=== PATIENT | female | born 1990 | race Caucasian/White ===

== ENCOUNTER 2016-04-18 21:12 | Emergency (ER) | payer MEDICAID ==
[~2016-04-18] VITALS: Ht 162.6 cm; Wt 95.9 kg
[~2016-04-18 21:12] MED LIST: MULTI VITAMINS1 TAB PO; NORCO 325 MG-51 TAB PO
[2016-04-18 21:15] VITALS: TEMP 97.9
[2016-04-18] MEDS ORDERED: SYNTHROID 0.10.15 MG PO (21:19)
[2016-04-18] MEDS ORDERED: PRENATAL (21:19)
[2016-04-18 22:18] VITALS: BP 142/74; PULSE 96
== END 2016-04-18 22:25 | disposition home or self-care (01) ==
LOC: COL.ER 21:12
DX: O20.0 Threatened abortion (principal); Z3A.10 10 weeks gestation of pregnancy

== ENCOUNTER 2016-08-24 09:29 | Outpatient (CLI) | payer MEDICAID ==
[~2016-08-24] VITALS: Ht 165.1 cm; Wt 103.6 kg
[2016-08-24 09:25] VITALS: TEMP 98
[2016-08-24 09:29] VITALS: BP 123/78; PULSE 95; TEMP 98.1
[~2016-08-24 09:29] MED LIST changes: +PRENATAL; +SYNTHROID 0.10.15 MG PO
== END 2016-08-24 11:00 | disposition home or self-care (01) ==
LOC: LDRO 09:29
DX: O9A.213 Injury, poisoning and certain other consequences of external causes complicating pregnancy, third trimester (principal); O99.89 Other specified diseases and conditions complicating pregnancy, childbirth and the puerperium; R10.9 Unspecified abdominal pain; W17.89XA Other fall from one level to another, initial encounter; Y92.012 Bathroom of single-family (private) house as the place of occurrence of the external cause; Z3A.28 28 weeks gestation of pregnancy

== ENCOUNTER 2016-09-19 21:20 | Emergency (ER) | payer MEDICAID ==
[~2016-09-19] VITALS: Ht 162.6 cm; Wt 104.5 kg
[2016-09-19 21:21] VITALS: BP 136/77; PULSE 93; TEMP 98.1
== END 2016-09-19 22:37 | disposition home or self-care (01) ==
LOC: COL.ER 21:20
DX: O9A.213 Injury, poisoning and certain other consequences of external causes complicating pregnancy, third trimester (principal); S00.412A Abrasion of left ear, initial encounter; Z3A.33 33 weeks gestation of pregnancy; X58.XXXA Exposure to other specified factors, initial encounter

== ENCOUNTER 2016-10-06 02:52 | Outpatient (CLI) | payer MEDICAID ==
[~2016-10-06] VITALS: Ht 162.6 cm; Wt 104.5 kg
[2016-10-06 03:10] VITALS: BP 131/76; PULSE 66; TEMP 98.1
[2016-10-06 03:15] VITALS: BP 131/76; PULSE 66; TEMP 98.1
== END 2016-10-06 04:10 | disposition home or self-care (01) ==
LOC: LDRO 02:52
DX: O62.2 Other uterine inertia (principal); Z3A.34 34 weeks gestation of pregnancy

== ENCOUNTER 2016-10-31 23:46 | Outpatient (CLI) | payer MEDICAID ==
[~2016-10-31] VITALS: Ht 165.1 cm; Wt 103.2 kg
[2016-11-01 00:22] VITALS: BP 122/67; PULSE 67; TEMP 98.2
[2016-11-01 00:30] VITALS: BP 122/67; PULSE 67; TEMP 98.2
== END 2016-11-01 01:25 | disposition home or self-care (01) ==
LOC: LDRO 23:46
DX: O36.8130 Decreased fetal movements, third trimester, not applicable or unspecified (principal); Z3A.38 38 weeks gestation of pregnancy

== ENCOUNTER 2016-11-05 05:28 | Inpatient (IN) | payer MEDICAID ==
[~2016-11-05] VITALS: Ht 165.2 cm; Wt 103.2 kg
[2016-11-05] VITALS (19 sets, daily range): BP systolic 112–147; BP diastolic 68–102; PULSE 57–91; TEMP 97.7–98.1
[2016-11-05 07:20] LABS: BASO % 0.2 % (0.0-2.0); EOS # 0.2 (0.0-0.7); EOS % 2.5 % (0-4.0); GRAN # 5.3 (1.4-6.5); GRAN % 65.9 % (42.2-75.2); LYMPH # 1.9 (1.2-3.4); LYMPH % 23.9 % (20.0-51.0); MEAN CELL VOLUME 85 fl (80.0-100.0); MEAN CORPUSCULAR HGB CONC 33 g/dl (33.0-37.0); MEAN PLATELET VOLUME 9.1 fl (7.4-10.4); MONO # 0.6 (0.1-0.6); PLATELET COUNT 192 K/mm3 (130-400); RED BLOOD COUNT 4.15 M/mm3 (4.10-5.30); REDCELL DISTRIBUTION WIDTH-CV 14.5 % (11.5-14.5); WHITE BLOOD COUNT 8.1 K/mm3 (4.8-10.8)
[2016-11-05 07:43] LABS: HEMATOCRIT 35.3 % (37.0-47.0); HEMOGLOBIN 11.7 g/dl (12.5-16.0); MEAN CORPUSCULAR HEMOGLOBIN 28 pg (27.0-31.0)
[2016-11-05 18:18] LABS: BASO % 0.3 % (0.0-2.0); EOS # 0.1 (0.0-0.7); EOS % 1.3 % (0-4.0); GRAN # 8.2 (1.4-6.5); HEMATOCRIT 38.3 % (37.0-47.0); HEMOGLOBIN 12.6 g/dl (12.5-16.0); LYMPH # 1.2 (1.2-3.4); LYMPH % 11.6 % (20.0-51.0); MEAN CELL VOLUME 85 fl (80.0-100.0); MEAN CORPUSCULAR HEMOGLOBIN 28 pg (27.0-31.0); MEAN CORPUSCULAR HGB CONC 33 g/dl (33.0-37.0); MEAN PLATELET VOLUME 9.2 fl (7.4-10.4); MONO # 0.5 (0.1-0.6); MONO % 4.5 % (1.7-9.3); PLATELET COUNT 157 K/mm3 (130-400); RED BLOOD COUNT 4.51 M/mm3 (4.10-5.30); REDCELL DISTRIBUTION WIDTH-CV 14.5 % (11.5-14.5)
[2016-11-05 18:20] LABS: ADJUSTED CALCIUM 10.2 mg/dL (8.4-10.2); ALBUMIN 2.6 gm/dL (3.5-5.0); BILIRUBIN,TOTAL 0.7 mg/dL (0.0-1.0); CALCIUM 9.1 mg/dL (8.4-10.2); CREATININE, serum 0.81 mg/dL (0.52-1.25); POTASSIUM 4.2 mmol/L (3.4-5.0); TOTAL PROTEIN 5.4 gm/dL (6.4-8.2)
[2016-11-06 05:30] VITALS: BP 126/66; PULSE 95; TEMP 98.3
[2016-11-06 06:45] VITALS: BP 105/53; PULSE 84; TEMP 97.8
[2016-11-06 07:50] LABS: BASO % 0.1 % (0.0-2.0); EOS # 0.2 (0.0-0.7); EOS % 2.1 % (0-4.0); GRAN # 7.3 (1.4-6.5); GRAN % 82.1 % (42.2-75.2); LYMPH # 0.9 (1.2-3.4); LYMPH % 10.6 % (20.0-51.0); MEAN CELL VOLUME 85 fl (80.0-100.0); MEAN CORPUSCULAR HGB CONC 32 g/dl (33.0-37.0); MEAN PLATELET VOLUME 9.1 fl (7.4-10.4); MONO # 0.4 (0.1-0.6); MONO % 4.6 % (1.7-9.3); PLATELET COUNT 155 K/mm3 (130-400); RED BLOOD COUNT 3.88 M/mm3 (4.10-5.30); REDCELL DISTRIBUTION WIDTH-CV 14.8 % (11.5-14.5); WHITE BLOOD COUNT 8.8 K/mm3 (4.8-10.8)
[2016-11-06 07:52] LABS: HEMATOCRIT 33.1 % (37.0-47.0); HEMOGLOBIN 10.7 g/dl (12.5-16.0); MEAN CORPUSCULAR HEMOGLOBIN 28 pg (27.0-31.0)
[2016-11-06] MEDS ORDERED: IBU600 MG PO (08:43)
[2016-11-06] MEDS ORDERED: PERCOCET 325 MG1 TA2 PO (08:43)
[2016-11-06 11:00] VITALS: BP 141/86; PULSE 99; TEMP 98.1
[2016-11-06 17:18] VITALS: BP 133/85; PULSE 90; TEMP 97.8
[2016-11-06 21:00] VITALS: BP 134/81; PULSE 94; TEMP 98.1
[2016-11-07 08:48] VITALS: BP 129/76; PULSE 84; TEMP 98.6
== END 2016-11-07 11:55 | disposition home or self-care (01) | DRG 765 ==
LOC: OB 05:28
PROVIDERS: Obstetrics & Gynecology
PROC: 10D00Z1 Extraction of Products of Conception, Low, Open Approach (ICD-10-PCS; principal; 2016-11-05)
PROC: 0WQF0ZZ Repair Abdominal Wall, Open Approach (ICD-10-PCS; 2016-11-05)
DX: O34.211 Maternal care for low transverse scar from previous cesarean delivery (principal); O99.354 Diseases of the nervous system complicating childbirth; N85.8 Other specified noninflammatory disorders of uterus; G40.909 Epilepsy, unspecified, not intractable, without status epilepticus; O99.284 Endocrine, nutritional and metabolic diseases complicating childbirth; E03.9 Hypothyroidism, unspecified; O99.62 Diseases of the digestive system complicating childbirth; K43.9 Ventral hernia without obstruction or gangrene; O69.81X0 Labor and delivery complicated by cord around neck, without compression, not applicable or unspecified; Z3A.39 39 weeks gestation of pregnancy; Z37.0 Single live birth
CPT/HCPCS: J0690; J1885; J2210; J2270; J2370; J2405; J2590; J7120

== ENCOUNTER 2016-11-18 23:43 | Inpatient (IN) | payer MEDICAID ==
[~2016-11-18] VITALS: Ht 162.6 cm; Wt 95.0 kg
[~2016-11-18 23:43] MED LIST changes: +IBU600 MG PO; +PERCOCET 325 MG1 TA2 PO
[2016-11-19] VITALS (14 sets, daily range): BP systolic 95–119; BP diastolic 51–79; PULSE 90–119; TEMP 97.9–102
[2016-11-19 00:41] LABS: COLLECTION METHOD CLEAN CATCH
[2016-11-19 00:49] LABS: HEMATOCRIT 37.6 % (37.0-47.0); MEAN CELL VOLUME 86 fl (80.0-100.0); MEAN CORPUSCULAR HEMOGLOBIN 27 pg (27.0-31.0); MEAN CORPUSCULAR HGB CONC 32 g/dl (33.0-37.0); MEAN PLATELET VOLUME 8.5 fl (7.4-10.4); PLATELET COUNT 384 K/mm3 (130-400); RED BLOOD COUNT 4.39 M/mm3 (4.10-5.30); REDCELL DISTRIBUTION WIDTH-CV 14.7 % (11.5-14.5)
[2016-11-19 00:53] LABS: HEMOGLOBIN 11.9 g/dl (12.5-16.0)
[2016-11-19 01:02] LABS: ALBUMIN 3.3 gm/dL (3.5-5.0); BILIRUBIN,TOTAL 0.9 mg/dL (0.0-1.0); CALCIUM 8.8 mg/dL (8.4-10.2); CREATININE, serum 0.96 mg/dL (0.52-1.25); POTASSIUM 3.8 mmol/L (3.4-5.0); TOTAL PROTEIN 7.3 gm/dL (6.4-8.2)
[2016-11-19 01:04] LABS: MUCOUS Present /lpf; PH 5 (5-8); SQUAMOUS EPITHELIAL 20-50 /hpf; URINE APPEARANCE Cloudy; URINE BACTERIA Rare /hpf; URINE BILIRUBIN Positive (NEGATIVE); URINE BLOOD 2+ (NEGATIVE); URINE COLOR Amber; URINE GLUCOSE Negative (NEGATIVE); URINE KETONE Negative (NEGATIVE); URINE LEUKOCYTE ESTERASE 1+ (NEGATIVE); URINE NITRATE Negative (NEGATIVE); URINE PROTEIN(semi-quant) 3+ (NEGATIVE); URINE RBC >50 /hpf
[2016-11-19 01:18] LABS: BAND 7 % (0-10); EOSINOPHIL 4 % (0-4); LYMPHOCYTE 9 % (20.0-51.0); NEUTROPHILS 70 % (42.0-75.2)
[2016-11-19 01:19] LABS: ROULEAUX 1+; TOXIC GRANULATION PRESENT
[2016-11-19 01:49] LABS: C-REACTIVE PROTEIN 50.6 mg/dL (0.0-0.9)
--- NOTE | 2016-11-19 03:45 | NUR ---
0345 TO 222 FROM ER PER STRETCHER. HX C/SECT ON 11/05 AND NOW IS HAVING SWELLING AND PAIN NEAR C/SECT SITE. ODOR NOTED FROM ADB INC AND HARD SWOLLEN AREA NOTED ON PANNUS. SOME REDNESS NOTED IN AREA AROUND INC AND LOWER ABD. STATES IS NOT HAVING PAIN AT THIS TIME. IV ABX INFUSING ON ADM TO 222. INITIAL ASSESSMENT DONE.
--- NOTE | 2016-11-19 04:10 | NUR ---
0410 UP TO BR AND VOIDED. IV LR TO PRESENT SITE TO RUN AT 125/HR PER PUMP. INSTRUCTED ON NPO. BREAST PUMP GIVEN.
--- NOTE | 2016-11-19 06:30 | NUR ---
Dr. Campbell here, visits with patient.
--- NOTE | 2016-11-19 11:00 | NUR ---
Radiology here to roller picker patient in wheel chair. Iv stopped per radiology.
--- NOTE | 2016-11-19 12:32 | NUR ---
Patient tolerated procedure well, Vital signs remained stable, she was comfortable during procedure, I have called report to BALJINDER Zelaya in OB and gave report
--- NOTE | 2016-11-19 12:33 | NUR ---
Patient was brought to CT at 1105, alert/oriented, Vital signs stale, arrived and instructed to give 0.5mg Versed and 50mcg fentanyl, patient was draped in sterile fashion, Versed and Fentanyl given at 1130, local of lidocaine given per , incision was made/ abscess drained/ specimen collected, Vital signs remained stable and patient was drowsy/alert during procedure, ordered to give another dose of 0.5mg Versed/ this was given at 1145, guide wire inserted and drain place/ sutured into place by , clean dressing placed over drain insertion site, patient tolerated well/ Vital signs remained stable throughout, procedure completed at 1205, patient was alert/oriented and VSS stable at this time, report called to BALJINDER Zelaya in OB, clinical research tech tranporting patient back to her room in OB
[2016-11-20 03:50] VITALS: BP 115/65; PULSE 75; TEMP 97.2
[2016-11-20 07:06] VITALS: BP 117/68; PULSE 72; TEMP 97.8
--- NOTE | 2016-11-20 09:13 | NUR ---
0900 DR MOTA AT BEDSIDE FOR ASSESSMENT. ASSESSED INCISION SITE. DR MOTA APPLIED PRESSURE AND LARGE AMOUNT OF PURULENT DRAINAGE NOTED AT THIS TIME FROM ABD INCISION SITE. WIPED CLEAN AND ABD PAD PLACED AT THIS TIME. PATIENT TOLERATES WELL. DRAIN TUBE REMAINS INTACT WITH PURULENT DRAINAGE NOTED IN BAG.
--- NOTE | 2016-11-20 10:51 | NUR ---
1030 LAWRENCE KIM RN TO ASSUME CARE OF PATIENT AT THIS TIME
[2016-11-20 11:50] VITALS: BP 106/84; PULSE 73; TEMP 97.2
[2016-11-20 16:18] VITALS: BP 132/69; PULSE 54; TEMP 97.5
--- NOTE | 2016-11-20 19:15 | NUR ---
Awakened for supper tray. Denies needs or discomfort at this time.
[2016-11-20 20:30] VITALS: BP 130/74; PULSE 78; TEMP 98.2
--- NOTE | 2016-11-20 20:30 | NUR ---
Discussed /pumping plans with pt. Pt tearfully states "I just don't feel like pumping without my baby here, but I know when I go home I'll want to start pumping/nursing again" Reviewed importance of pumping to maintain milk supply. Encouraged pt to try looking at pictures of the baby while she's pumping. Will nap and then pump when I start next round of antibiotics.
--- NOTE | 2016-11-20 20:30 | NUR ---
2wk old C/S incision with redness and warmth noted: small 1cm area at midline open, with no active drainage at this time, abd foled and placed in pannus fold at incision line.
[2016-11-21 05:30] VITALS: BP 131/74; PULSE 69; TEMP 98
[2016-11-21 08:00] VITALS: BP 127/75; PULSE 55; TEMP 97.9
[2016-11-21 16:59] VITALS: BP 137/84; PULSE 52; TEMP 97.7
[2016-11-21 20:42] VITALS: BP 129/82; PULSE 50; TEMP 97.6
[2016-11-22 00:18] VITALS: BP 138/84; PULSE 48; TEMP 97.5
[2016-11-22 04:43] VITALS: BP 148/77; PULSE 50; TEMP 97.4
[2016-11-22 06:37] VITALS: BP 13134/7; PULSE 67; TEMP 97.1
[2016-11-22] MEDS ORDERED: BACTRIM DS 8001 TAB PO (10:42)
--- NOTE | 2016-11-22 14:28 | NUR ---
1000 ZOSYN HUNG AND INFUSING WELL, DR MOTA IN TO SEE PT AND DISCUSS PLAN OF CARE. PT PLEASED WITH DISCHARGE TODAY
--- NOTE | 2016-11-22 14:29 | NUR ---
1100 VANCOMYCIN HUNG. HOME CARE INSTRUCTIONS REVIEWED WITH PT AND SPOUSE. QUESTIONS INVITED AND ANSWERED. 1230 VANCOMYCIN INFUSED AND IV SITE DC'D WITH TIP INTACT. SLIGHT REDNESS NOTED AND CARE DISCUSSED WITH PT. VERBALIZES UNDERSTANDING. KNOWS ABOUT FOLLOW UP APPOINTMENT WITH DR MOTA NEXT WEEK AND WOUND CARE APPOINTMENT TOMORROW AT 1500. 1255 VERBALIZES NO FURTHER QUESTIONS. DISMISSED AMB TO SELF CARE WITH SPOUSE AT SIDE.
== END 2016-11-22 12:55 | disposition home or self-care (01) | DRG 776 ==
LOC: COL.ER 23:43 → OB 11-19 02:29
PROVIDERS: Emergency Medicine; ADMIT Obstetrics & Gynecology
PROC: 0W9F3ZZ Drainage of Abdominal Wall, Percutaneous Approach (ICD-10-PCS; principal; 2016-11-19)
DX: O86.0 Infection of obstetric surgical wound (principal); O99.285 Endocrine, nutritional and metabolic diseases complicating the puerperium; E03.9 Hypothyroidism, unspecified; B95.62 Methicillin resistant Staphylococcus aureus infection as the cause of diseases classified elsewhere
CPT/HCPCS: C1729; J1170; J2250; J2543; J3010; J3370; J7030; J7050; J7120; Q9967

== ENCOUNTER → 2016-11-23 | Outpatient (CLI) | payer MEDICAID ==
[~2016-11-23] MED LIST changes: +BACTRIM DS 8001 TAB PO; +CEPHALEXIN500 M1 PO; +PROBIOTIC FORMU1 CAP PO
== END ==
LOC: WCC 11:11
DX: T81.31XA Disruption of external operation (surgical) wound, not elsewhere classified, initial encounter (principal)
CPT/HCPCS: 17717; 27517; A6207; A6212; G0463

== ENCOUNTER 2016-11-26 10:07 | Day surgery (SDC) | payer MEDICAID ==
[~2016-11-26] VITALS: Ht 162.6 cm; Wt 95.0 kg
[~2016-11-26 10:07] MED LIST changes: -CEPHALEXIN500 M1 PO; -PROBIOTIC FORMU1 CAP PO
[2016-11-26] MEDS ORDERED: PROBIOTIC FORMU1 CAP PO (10:58)
[2016-11-26] MEDS ORDERED: PERCOCET 325 MG1 TA2 PO (10:59)
[2016-11-26] MEDS ORDERED: IBU600 MG PO (11:00)
[2016-11-26] MEDS ORDERED: BACTRIM DS 8001 TAB PO (11:00)
[2016-11-26 11:06] VITALS: BP 113/76; PULSE 74; TEMP 97.8
[2016-11-26 13:16] VITALS: BP 113/62; PULSE 57; TEMP 97.5
[2016-11-26 13:31] VITALS: BP 121/65; PULSE 53
[2016-11-26 13:46] VITALS: BP 118/64; PULSE 57
[2016-11-26 14:01] VITALS: BP 118/77; PULSE 49
[2016-11-26 14:31] VITALS: BP 114/62; PULSE 50
== END 2016-11-26 15:00 | disposition home or self-care (01) ==
LOC: SDCO 10:07
DX: T81.4XXA Infection following a procedure, initial encounter (principal); E03.9 Hypothyroidism, unspecified; G40.909 Epilepsy, unspecified, not intractable, without status epilepticus; M79.7 Fibromyalgia
CPT/HCPCS: J0330; J2704; J3010; J7120

== ENCOUNTER → 2016-11-28 | Outpatient (CLI) | payer MEDICAID ==
[~2016-11-28] MED LIST changes: +CEPHALEXIN500 M1 PO; +PROBIOTIC FORMU1 CAP PO
== END ==
LOC: WCC 11:39
DX: T81.31XA Disruption of external operation (surgical) wound, not elsewhere classified, initial encounter (principal)
CPT/HCPCS: 17717; A6212; G0463

== ENCOUNTER 2016-12-01 11:01 | Emergency (ER) | payer MEDICAID ==
[~2016-12-01] VITALS: Ht 162.6 cm; Wt 91.0 kg
[~2016-12-01 11:01] MED LIST changes: -CEPHALEXIN500 M1 PO
[2016-12-01 11:21] VITALS: TEMP 98.5
[2016-12-01 13:02] LABS: BASO # 0.1 (0.0-0.2); BASO % 0.7 % (0.0-2.0); EOS # 1.3 (0.0-0.7); EOS % 14.8 % (0-4.0); GRAN # 4.6 (1.4-6.5); GRAN % 53.3 % (42.2-75.2); HEMATOCRIT 42.6 % (37.0-47.0); HEMOGLOBIN 13.5 g/dl (12.5-16.0); LYMPH # 2.1 (1.2-3.4); LYMPH % 24.5 % (20.0-51.0); MEAN CELL VOLUME 85 fl (80.0-100.0); MEAN CORPUSCULAR HEMOGLOBIN 27 pg (27.0-31.0); MEAN CORPUSCULAR HGB CONC 32 g/dl (33.0-37.0); MEAN PLATELET VOLUME 8.5 fl (7.4-10.4); MONO # 0.5 (0.1-0.6); MONO % 6.2 % (1.7-9.3); PLATELET COUNT 320 K/mm3 (130-400); REDCELL DISTRIBUTION WIDTH-CV 14.8 % (11.5-14.5); WHITE BLOOD COUNT 8.7 K/mm3 (4.8-10.8)
[2016-12-01 13:07] LABS: PH 6 (5-8); SQUAMOUS EPITHELIAL 0-2 /hpf; URINE APPEARANCE Hazy; URINE BACTERIA None Seen /hpf; URINE BILIRUBIN Negative (NEGATIVE); URINE BLOOD 2+ (NEGATIVE); URINE COLOR Yellow; URINE GLUCOSE Negative (NEGATIVE); URINE KETONE Negative (NEGATIVE); URINE RBC 20-50 /hpf; URINE UROBILINOGEN Negative (NEGATIVE)
[2016-12-01 13:18] LABS: ADJUSTED CALCIUM 10.3 mg/dL (8.4-10.2); ALBUMIN 4.5 gm/dL (3.5-5.0); BILIRUBIN,TOTAL 0.8 mg/dL (0.0-1.0); C-REACTIVE PROTEIN 1.5 mg/dL (0.0-0.9); CALCIUM 10.7 mg/dL (8.4-10.2); CREATININE, serum 1.06 mg/dL (0.52-1.25); TOTAL PROTEIN 8.9 gm/dL (6.4-8.2)
[2016-12-01 13:22] LABS: INR 1.2 (0.8-3.0); PROTHROMBIN TIME 13.2 SECONDS (9.7-12.8)
[2016-12-01 13:30] LABS: ERYTHROCYTE SEDIMENTATION RATE 35 mm/hr (0-20)
[2016-12-01 13:44] LABS: POTASSIUM 5.3 mmol/L (3.4-5.0)
[2016-12-01] MEDS ORDERED: CEPHALEXIN500 M1 PO (15:12)
[2016-12-01 15:27] VITALS: BP 128/82; PULSE 78
== END 2016-12-01 15:28 | disposition home or self-care (01) ==
LOC: COL.ER 11:01
PROVIDERS: Emergency Medicine
DX: R55 Syncope and collapse (principal); Z98.890 Other specified postprocedural states
CPT/HCPCS: J7030; Q9967

== ENCOUNTER → 2016-12-03 | Outpatient (CLI) | payer MEDICAID ==
[~2016-12-03] MED LIST changes: +CEPHALEXIN500 M1 PO
== END ==
LOC: WCC 09:52
DX: T81.31XA Disruption of external operation (surgical) wound, not elsewhere classified, initial encounter (principal)

== ENCOUNTER → 2016-12-05 | Outpatient (CLI) | payer MEDICAID | LOC: WCC 12-03 09:26 | DX: T81.31XA Disruption of external operation (surgical) wound, not elsewhere classified, initial encounter (principal) | CPT/HCPCS: 27511; A6210 ==

== ENCOUNTER → 2016-12-07 | Outpatient (CLI) | payer MEDICAID | LOC: WCC 12-03 08:27 | DX: T81.31XA Disruption of external operation (surgical) wound, not elsewhere classified, initial encounter (principal) | CPT/HCPCS: 27511; A6210 ==

== ENCOUNTER → 2016-12-10 | Outpatient (CLI) | payer MEDICAID | LOC: WCC 08:15 | DX: T81.31XA Disruption of external operation (surgical) wound, not elsewhere classified, initial encounter (principal) | CPT/HCPCS: A6210 ==

== ENCOUNTER → 2016-12-12 | Outpatient (CLI) | payer MEDICAID | LOC: WCC 12-11 10:10 | DX: T81.31XA Disruption of external operation (surgical) wound, not elsewhere classified, initial encounter (principal) | CPT/HCPCS: 27511; A6210 ==

== ENCOUNTER → 2016-12-14 | Outpatient (CLI) | payer MEDICAID | LOC: WCC 12:57 | DX: T81.31XA Disruption of external operation (surgical) wound, not elsewhere classified, initial encounter (principal) | CPT/HCPCS: 27511; A6210 ==

== ENCOUNTER → 2016-12-17 | Outpatient (CLI) | payer MEDICAID | LOC: WCC 12:03 | DX: T81.31XA Disruption of external operation (surgical) wound, not elsewhere classified, initial encounter (principal) | CPT/HCPCS: 13973; A6199 ==

== ENCOUNTER → 2016-12-19 | Outpatient (CLI) | payer MEDICAID | LOC: WCC 14:31 | DX: T81.31XA Disruption of external operation (surgical) wound, not elsewhere classified, initial encounter (principal) ==

== ENCOUNTER → 2016-12-21 | Outpatient (CLI) | payer MEDICAID | LOC: WCC 13:12 | DX: T81.31XA Disruption of external operation (surgical) wound, not elsewhere classified, initial encounter (principal); Z93.6 Other artificial openings of urinary tract status ==

== ENCOUNTER → 2016-12-24 | Outpatient (CLI) | payer MEDICAID | LOC: WCC 13:08 | DX: T81.31XA Disruption of external operation (surgical) wound, not elsewhere classified, initial encounter (principal) | CPT/HCPCS: 17717; A6212; G0463 ==

== ENCOUNTER → 2016-12-26 | Outpatient (CLI) | payer MEDICAID | LOC: WCC 12-25 10:15 | DX: T81.31XA Disruption of external operation (surgical) wound, not elsewhere classified, initial encounter (principal) | CPT/HCPCS: 17717; 27514; A6212; G0463 ==

== ENCOUNTER → 2016-12-31 | Outpatient (CLI) | payer MEDICAID | LOC: WCC 13:41 | DX: T81.31XA Disruption of external operation (surgical) wound, not elsewhere classified, initial encounter (principal) | CPT/HCPCS: 27510; A6197; G0463 ==

== ENCOUNTER 2017-01-31 20:18 | Emergency (ER) | payer MEDICAID ==
[~2017-01-31] VITALS: Ht 162.6 cm; Wt 90.9 kg
[2017-01-31 20:30] VITALS: BP 147/81; TEMP 98.5
[2017-01-31 21:24] LABS: BASO % 0.4 % (0.0-2.0); EOS # 1.4 (0.0-0.7); EOS % 17.9 % (0-4.0); GRAN # 3.5 (1.4-6.5); GRAN % 44.5 % (42.2-75.2); HEMATOCRIT 40.8 % (37.0-47.0); HEMOGLOBIN 13.2 g/dl (12.5-16.0); LYMPH # 2.4 (1.2-3.4); LYMPH % 30.9 % (20.0-51.0); MEAN CELL VOLUME 85 fl (80.0-100.0); MEAN CORPUSCULAR HEMOGLOBIN 27 pg (27.0-31.0); MEAN CORPUSCULAR HGB CONC 32 g/dl (33.0-37.0); MEAN PLATELET VOLUME 8.7 fl (7.4-10.4); MONO # 0.5 (0.1-0.6); PLATELET COUNT 258 K/mm3 (130-400); RED BLOOD COUNT 4.82 M/mm3 (4.10-5.30); WHITE BLOOD COUNT 7.9 K/mm3 (4.8-10.8)
[2017-01-31 21:36] LABS: ADJUSTED CALCIUM 9.5 mg/dL (8.4-10.2); ALBUMIN 4.3 gm/dL (3.5-5.0); BILIRUBIN,TOTAL 0.3 mg/dL (0.0-1.0); C-REACTIVE PROTEIN 2.6 mg/dL (0.0-0.9); CALCIUM 9.7 mg/dL (8.4-10.2); CREATININE, serum 0.69 mg/dL (0.52-1.25); POTASSIUM 3.7 mmol/L (3.4-5.0); TOTAL PROTEIN 7.6 gm/dL (6.4-8.2)
[2017-01-31 22:14] VITALS: PULSE 79
== END 2017-01-31 22:14 | disposition home or self-care (01) ==
LOC: COL.ER 20:18
PROVIDERS: Physician Assistant
DX: R10.819 Abdominal tenderness, unspecified site (principal); E03.9 Hypothyroidism, unspecified; G40.909 Epilepsy, unspecified, not intractable, without status epilepticus; Z32.02 Encounter for pregnancy test, result negative; Z79.1 Long term (current) use of non-steroidal anti-inflammatories (NSAID); Z98.890 Other specified postprocedural states
CPT/HCPCS: J7040

== ENCOUNTER 2018-07-11 21:09 | Emergency (ER) | payer MEDICAID ==
[~2018-07-11] VITALS: Ht 162.6 cm; Wt 105.5 kg
[2018-07-11 21:09] VITALS: TEMP 99.2
[2018-07-11 21:53] LABS: COLLECTION METHOD CLEAN CATCH
--- NOTE | 2018-07-11 22:00 | NUR ---
2149-RN to ED for FHT strip. EFM and TOCO on and tracing. Patient denies contractions, LOF, spotting, or bleeding. Patient states baby has been moving normally. 2209- FHT with moderate variability. EFM and TOCO off. Patient to follow up with OB provider and keep all upcoming OB appointments.
[2018-07-11 22:04] LABS: BASO % 0.2 % (0.0-2.0); EOS # 0.4 (0.0-0.7); GRAN # 6.7 (1.4-6.5); GRAN % 67.6 % (42.2-75.2); HEMOGLOBIN 11.1 g/dl (12.5-16.0); LYMPH # 2.1 (1.2-3.4); LYMPH % 21.3 % (20.0-51.0); MEAN CELL VOLUME 86 fl (80.0-100.0); MEAN CORPUSCULAR HEMOGLOBIN 28 pg (27.0-31.0); MEAN CORPUSCULAR HGB CONC 33 g/dl (33.0-37.0); MEAN PLATELET VOLUME 8.6 fl (7.4-10.4); MONO # 0.6 (0.1-0.6); MONO % 6.2 % (1.7-9.3); PLATELET COUNT 209 K/mm3 (130-400); REDCELL DISTRIBUTION WIDTH-CV 14.6 % (11.5-14.5)
[2018-07-11 22:05] LABS: HEMATOCRIT 34.2 % (37.0-47.0)
[2018-07-11 22:13] LABS: MUCOUS Present /lpf; PH 7 (5-8); URINE APPEARANCE Hazy; URINE BACTERIA Rare /hpf; URINE BILIRUBIN Negative (NEGATIVE); URINE BLOOD Negative (NEGATIVE); URINE COLOR Yellow; URINE GLUCOSE Negative (NEGATIVE); URINE KETONE Negative (NEGATIVE); URINE LEUKOCYTE ESTERASE Negative (NEGATIVE); URINE NITRATE Negative (NEGATIVE); URINE PROTEIN(semi-quant) Negative (NEGATIVE); URINE RBC 0-2 /hpf; URINE UROBILINOGEN Negative (NEGATIVE)
[2018-07-11 22:14] LABS: ALANINE AMINOTRANSFERASE < 6 U/L (9-52); ALBUMIN 3.4 gm/dL (3.5-5.0); ALKALINE PHOSPHATASE 82 U/L (50-136); ANION GAP 9 mmol/L (7-16); AST,SGOT 13 U/L (15-37); BILIRUBIN,TOTAL 0.2 mg/dL (0.0-1.0); BLOOD UREA NITROGEN 4 mg/dL (7-17); CALCIUM 10.4 mg/dL (8.4-10.2); CARBON DIOXIDE 22 mmol/L (22-30); CHLORIDE 105 mmol/L (98-107); CREATININE, serum 0.55 (0.52-1.25); GLUCOSE 84 mg/dL (74-106); POTASSIUM 3.6 mmol/L (3.4-5.0); SODIUM 136 mmol/L (137-145); TOTAL PROTEIN 6.7 gm/dL (6.4-8.2)
[2018-07-11 23:36] VITALS: BP 121/67; PULSE 76
== END 2018-07-11 23:36 | disposition home or self-care (01) ==
LOC: COL.ER 21:09
PROVIDERS: Emergency Medicine
DX: R10.12 Left upper quadrant pain (principal); Z98.890 Other specified postprocedural states

== ENCOUNTER → 2018-07-11 | Outpatient (CLI) | payer MEDICAID | LOC: LDRO 20:55 | DX: Z34.90 Encounter for supervision of normal pregnancy, unspecified, unspecified trimester (principal); Z3A.00 Weeks of gestation of pregnancy not specified ==

== ENCOUNTER 2018-08-20 05:32 | Inpatient (IN) | payer OTHER, MEDICAID ==
[~2018-08-20] VITALS: Ht 162.6 cm; Wt 108.6 kg
[2018-08-20] VITALS (18 sets, daily range): BP systolic 106–133; BP diastolic 58–86; PULSE 65–85; TEMP 97.5–98.5
--- NOTE | 2018-08-20 05:35 | NUR ---
0535- Patient and ambulatory to 221 for scheduled section. Patient and oriented to room. Patient into restroom to void and change into gown. 0545- EFM and TOCO on and tracing. IV started. Consents signed.
[2018-08-20 06:28] LABS: BASO % 0.2 % (0.0-2.0); EOS # 0.4 (0.0-0.7); GRAN # 6.3 (1.4-6.5); GRAN % 68.2 % (42.2-75.2); HEMOGLOBIN 11.3 g/dl (12.5-16.0); LYMPH # 1.9 (1.2-3.4); LYMPH % 20.8 % (20.0-51.0); MEAN CELL VOLUME 85 fl (80.0-100.0); MEAN CORPUSCULAR HEMOGLOBIN 28 pg (27.0-31.0); MEAN CORPUSCULAR HGB CONC 33 g/dl (33.0-37.0); MEAN PLATELET VOLUME 8.6 fl (7.4-10.4); MONO # 0.6 (0.1-0.6); MONO % 6.3 % (1.7-9.3); PLATELET COUNT 208 K/mm3 (130-400); RED BLOOD COUNT 4.06 M/mm3 (4.10-5.30); REDCELL DISTRIBUTION WIDTH-CV 15.6 % (11.5-14.5)
--- NOTE | 2018-08-20 06:30 | NUR ---
Assessment complete and shave and abd prep done. 0700:This nurse at bedside holding EFM on abdomen for continuous monitoring. FHR reactive. No contractions palpated. Pt with hx of MRSA after previous c/section and hernia repair. 2 x negative swabs noted.
[2018-08-20] MEDS ORDERED: SYNTHROID0.137 MG (06:37)
[2018-08-20 07:12] LABS: HEMATOCRIT 34.3 % (37.0-47.0)
--- NOTE | 2018-08-20 09:30 | NUR ---
Pt taken to room 221 via bed. Fundus firm and bleeding WNL. Dressing has small amounts of shadowing noted, traced and will continue to monitor. Pt alert and oriented. at bedside. Denies any pain or nausea. SCD's on bilaterally. Pericare done and new pads placed.
--- NOTE | 2018-08-20 10:15 | NUR ---
more shadowing and bleeding noted to incision dressing. softball size shadowing to center. Dr Alejandra called to notify. Orders redress incision and place ABD pad for pressure dressing and he will be to evaluate at 1200. Dressing removed, no active bleeding noted to incision. New 4x4 and ABD placed. Abd binder on at this time.
--- NOTE | 2018-08-20 11:15 | NUR ---
Dressing to incision is C/D/I at this time. Pt denies wanting pain medications. will notify when needed
--- NOTE | 2018-08-20 15:45 | NUR ---
Pt up to bathroom with assist from this nurse. Cruz catheter removed. Pericare instructions given and pt uses own underwear and pads per her request. Denies any pain. Fundus firm, bleeding WNL. Pt ambulates to couch at this time.
[2018-08-21] VITALS: BP 107/63; PULSE 101; TEMP 97.7
[2018-08-21 04:45] VITALS: BP 123/65; PULSE 88; TEMP 97.8
[2018-08-21 08:20] VITALS: BP 117/74; PULSE 95; TEMP 98.2
[2018-08-21] MEDS ORDERED: IBU600 MG PO (08:50)
[2018-08-21] MEDS ORDERED: PERCOCET 325 MG1 TA2 PO (08:50)
--- NOTE | 2018-08-21 09:12 | NUR ---
Initial visit; Parents thanked Payroll Lead for offering congratulations and God's blessings for the of their daughter. Payroll Lead thanked family for choosing [facility].
== END 2018-08-21 13:00 | disposition home or self-care (01) | DRG 788 ==
LOC: LDR → OB 05:32 → LDR 13:50 → OB 08-21 13:00
PROVIDERS: ADMIT Obstetrics & Gynecology
PROC: 10D00Z1 Extraction of Products of Conception, Low, Open Approach (ICD-10-PCS; principal; 2018-08-20)
PROC: 0WJH0ZZ Inspection of Retroperitoneum, Open Approach (ICD-10-PCS; 2018-08-20)
DX: O34.211 Maternal care for low transverse scar from previous cesarean delivery (principal); O99.284 Endocrine, nutritional and metabolic diseases complicating childbirth; E03.9 Hypothyroidism, unspecified; O99.89 Other specified diseases and conditions complicating pregnancy, childbirth and the puerperium; M79.7 Fibromyalgia; O99.62 Diseases of the digestive system complicating childbirth; K46.9 Unspecified abdominal hernia without obstruction or gangrene; O99.213 Obesity complicating pregnancy, third trimester; O99.52 Diseases of the respiratory system complicating childbirth; J45.909 Unspecified asthma, uncomplicated; Z3A.39 39 weeks gestation of pregnancy; Z37.0 Single live birth; Z86.14 Personal history of Methicillin resistant Staphylococcus aureus infection; Z88.2 Allergy status to sulfonamides
CPT/HCPCS: J0690; J1885; J2175; J2270; J2370; J2405; J2550; J2590; J2765; J7120

== ENCOUNTER 2019-08-29 15:04 | Emergency (ER) | payer OTHER ==
[~2019-08-29] VITALS: Ht 162.6 cm; Wt 86.4 kg
[~2019-08-29 15:04] MED LIST changes: +SYNTHROID0.137 MG
[2019-08-29 15:07] VITALS: TEMP 97.4
[2019-08-29 15:37] LABS: COLLECTION METHOD CLEAN CATCH
[2019-08-29 15:41] LABS: BASO % 0.3 % (0.0-2.0); EOS # 0.4 (0.0-0.7); EOS % 3.9 % (0-4.0); GRAN # 6.5 (1.4-6.5); GRAN % 64.9 % (42.2-75.2); HEMATOCRIT 42.2 % (37.0-47.0); HEMOGLOBIN 13.5 g/dl (12.5-16.0); LYMPH # 2.7 (1.2-3.4); LYMPH % 26.3 % (20.0-51.0); MEAN CELL VOLUME 83 fl (80.0-100.0); MEAN CORPUSCULAR HEMOGLOBIN 27 pg (27.0-31.0); MEAN CORPUSCULAR HGB CONC 32 g/dl (33.0-37.0); MEAN PLATELET VOLUME 8.9 fl (7.4-10.4); MONO # 0.4 (0.1-0.6); MONO % 4.4 % (1.7-9.3); PLATELET COUNT 231 K/mm3 (130-400); RED BLOOD COUNT 5.09 M/mm3 (4.10-5.30); REDCELL DISTRIBUTION WIDTH-CV 14.5 % (11.5-14.5)
[2019-08-29 15:47] LABS: MUCOUS Present /lpf; PH 6 (5-8); SQUAMOUS EPITHELIAL 0-2 /hpf; URINE APPEARANCE Hazy; URINE BACTERIA Rare /hpf; URINE BILIRUBIN Negative (NEGATIVE); URINE BLOOD 3+ (NEGATIVE); URINE COLOR Yellow; URINE GLUCOSE Negative (NEGATIVE); URINE KETONE Negative (NEGATIVE); URINE LEUKOCYTE ESTERASE 1+ (NEGATIVE); URINE NITRATE Negative (NEGATIVE); URINE PROTEIN(semi-quant) Negative (NEGATIVE); URINE RBC >50 /hpf; URINE UROBILINOGEN Negative (NEGATIVE)
[2019-08-29 15:57] LABS: ALBUMIN 4.1 gm/dL (3.5-5.0); BILIRUBIN,TOTAL 0.4 mg/dL (0.0-1.0); CALCIUM 9.4 mg/dL (8.4-10.2); CREATININE, serum 0.58 (0.52-1.25); POTASSIUM 3.8 mmol/L (3.4-5.0); TOTAL PROTEIN 7.7 gm/dL (6.4-8.2)
[2019-08-29] MEDS ORDERED: ZOFRAN ODT8 MG PO (16:18)
[2019-08-29] MEDS ORDERED: CEPHALEXIN500 M1 PO ×2 (16:19)
[2019-08-29] MEDS ORDERED: FLOMAX 0.40.4 MG/CAP PO (16:55)
[2019-08-29] MEDS ORDERED: NORCO 325 MG-51 TAB PO (17:05)
[2019-08-29] MEDS ORDERED: OMNICEF 300MG300 MG PO (17:06)
[2019-08-29 17:45] VITALS: BP 116/58; PULSE 82
== END 2019-08-29 17:45 | disposition home or self-care (01) ==
LOC: COL.ER 15:04
PROVIDERS: Emergency Medicine
DX: R10.9 Unspecified abdominal pain (principal); R31.9 Hematuria, unspecified; Z90.49 Acquired absence of other specified parts of digestive tract; Z90.89 Acquired absence of other organs
CPT/HCPCS: C9113; J0696; J1170; J1885; J2270; J2405; J2550; J7030

== ENCOUNTER 2019-12-12 17:30 | Emergency (ER) | payer OTHER ==
[~2019-12-12] VITALS: Ht 162.6 cm; Wt 113.6 kg
[~2019-12-12 17:30] MED LIST changes: +FLOMAX 0.40.4 MG/CAP PO; +OMNICEF 300MG300 MG PO; +ZOFRAN ODT8 MG PO
[2019-12-12 17:41] VITALS: TEMP 98.8
[2019-12-12 18:22] LABS: BASO % 0.4 % (0.0-2.0); EOS # 0.6 (0.0-0.7); EOS % 5.7 % (0-4.0); GRAN # 6.2 (1.4-6.5); GRAN % 60.9 % (42.2-75.2); HEMATOCRIT 39.3 % (37.0-47.0); HEMOGLOBIN 12.4 g/dl (12.5-16.0); LYMPH # 2.6 (1.2-3.4); LYMPH % 25.4 % (20.0-51.0); MEAN CELL VOLUME 80 fl (80.0-100.0); MEAN CORPUSCULAR HEMOGLOBIN 25 pg (27.0-31.0); MEAN CORPUSCULAR HGB CONC 32 g/dl (33.0-37.0); MEAN PLATELET VOLUME 8.5 fl (7.4-10.4); MONO # 0.7 (0.1-0.6); MONO % 7.3 % (1.7-9.3); PLATELET COUNT 302 K/mm3 (130-400); RED BLOOD COUNT 4.92 M/mm3 (4.10-5.30); REDCELL DISTRIBUTION WIDTH-CV 14.3 % (11.5-14.5)
[2019-12-12 18:35] LABS: ALANINE AMINOTRANSFERASE 27 U/L (4-34); ALKALINE PHOSPHATASE 59 U/L (50-136); ANION GAP 9 mmol/L (7-16); AST,SGOT 31 U/L (15-37); BILIRUBIN,TOTAL 0.3 mg/dL (0.0-1.0); BLOOD UREA NITROGEN 7 mg/dL (7-17); CARBON DIOXIDE 25 mmol/L (22-30); CHLORIDE 103 mmol/L (98-107); CREATININE, serum 0.69 (0.52-1.25); GLUCOSE 94 mg/dL (74-106); POTASSIUM 3.7 mmol/L (3.4-5.0); SODIUM 138 mmol/L (137-145); TOTAL PROTEIN 7.4 gm/dL (6.4-8.2)
[2019-12-12 18:48] LABS: TROPONIN-I < 0.012 ng/mL (0.000-0.035)
[2019-12-12 20:19] VITALS: BP 135/63; PULSE 73
== END 2019-12-12 20:18 | disposition home or self-care (01) ==
LOC: COL.ER 17:30
PROVIDERS: Emergency Medicine
DX: M94.0 Chondrocostal junction syndrome [Tietze] (principal); R42 Dizziness and giddiness; Z20.828 Contact with and (suspected) exposure to other viral communicable diseases; Z88.2 Allergy status to sulfonamides
CPT/HCPCS: J1885; J7030